=== PATIENT | female | born 1965 | race Caucasian/White ===

== ENCOUNTER 2017-05-13 21:19 | Emergency (ER) | payer MEDICAID ==
[~2017-05-13 21:19] MED LIST: ALBUAER3 INH; BACT800T5 PO; CEPH500C3 PO; CYCL-36 PO; IBUP800T23 PO; PYRI200T4 PO
[2017-05-13 21:22] VITALS: BP 136/101; PULSE 110; RESP 16; TEMP 99.5; O2SAT 98
[2017-05-13] MEDS ORDERED: SODIUM CHLOR 0.9% 1000 ML INJ 1,000 ML IV SCH (22:05)
--- NOTE | 2017-05-13 22:11 | PD ---
HPI Chief Complaint: Abdominal Pain Time Seen by Provider: 21:56 Travel History International Travel<30 days: No Contact w/Intl Traveler<30days: No Traveled to known affect area: No History of Present Illness HPI 51-year-old female here for evaluation of left upper quadrant abdominal pain. Pain started about 2 days ago while at rest. She was doing some heavy lifting prior to onset of pain. She describes the pain as a "charley horse." Pain is moderate, constant, worse with movement and palpation, radiates to her left flank/back. Patient reports history of chronic back pains and is on baclofen. She denies urinary symptoms such as hematuria. She usually has a little bit of stress incontinence, however she states she has not had this in the last few days. She has had "low-grade fever." No nausea or vomiting. No diarrhea. History of ventral hernia repair as well as tummy tuck. No other intra- abdominal surgeries. No chest pain. No hemoptysis. No dyspnea. PFSH Past Medical History Diminished Hearing: No Musculoskeletal: Yes (chronic back pain) ?: Not Menopausal: Yes Para: 6 Past Surgical History Other Surgery: Yes ("Tummy tuck") Social History Alcohol Use: No Tobacco Use: No Substance Use: No Allergies-Medications (Allergen,Severity, Reaction): Coded Allergies: Aspirin (Verified Allergy, Severe, 05/13/17) Cipro (Verified Allergy, Severe, Anaphylaxis, 05/13/17) Novocain (Verified Allergy, Severe, 05/13/17) "skin peels" Penicillin (Verified Allergy, Severe, 05/13/17) Tramadol (Verified Allergy, Severe, 05/13/17) Clindamycin (Verified Allergy, Intermediate, Dizziness and itching, ) [place] (Verified Allergy, Unknown, 05/13/17) Reported Meds & Prescriptions Reported Meds & Active Scripts Active Proair Hfa 8.5 GM Inh (Albuterol Sulfate) 90 Mcg/Act Aer 1 Puff INH Q4H PRN 108 mcg/actuation Bactrim DS (Sulfamethoxazole-Trimethoprim) 800-160 Mg Tab 1 Tab PO BID 7 Days Reported Flexeril (Cyclobenzaprine HCl) 10 Mg Tab 10 Mg PO TID Review of Systems Except as stated in HPI: all other systems reviewed are Neg Physical Exam Narrative GENERAL: Well-developed, well-nourished, comfortable, no acute distress. SKIN: Focused skin assessment warm/dry. No rash. HEAD: Atraumatic. Normocephalic. EYES: Pupils equal and round. No scleral icterus. No injection or drainage. ENT: Mucous membranes pink and moist. NECK: Trachea midline. No JVD. CARDIOVASCULAR: Regular rate and rhythm. RESPIRATORY: No accessory muscle use. Clear to auscultation. Breath sounds equal bilaterally. GASTROINTESTINAL: Abdomen soft, nondistended. Moderate left upper quadrant tenderness without peritoneal signs. There is also epigastric and right upper quadrant tenderness which is moderate and without peritoneal signs. Rest of abdomen is soft and nontender. Normal bowel sounds. MUSCULOSKELETAL: No obvious deformities. No clubbing. No cyanosis. No edema. No CVA tenderness. No midline vertebral step-off or tenderness. NEUROLOGICAL: Awake and alert. No obvious cranial nerve deficits. Motor grossly within normal limits. Normal speech. PSYCHIATRIC: Appropriate mood and affect; insight and judgment normal. Data Data Last Documented VS Vital Signs Date Time Temp Pulse Resp B/P Pulse Ox O2 Delivery O2 Flow Rate FiO2 05/13/17 21:22 99.5 110 16 136/101 98 Room Air Orders Complete Blood Count With Diff (05/13/17 22:05) Comprehensive Metabolic Panel (05/13/17 22:05) Lipase (05/13/17 22:05) Prothrombin Time / Inr (Pt) (05/13/17 22:05) Act Partial Throm Time (Ptt) (05/13/17 22:05) Urinalysis - C+S If Indicated (05/13/17 22:05) Ct Abd/Pel W Iv Contrast(Rout) (05/13/17 22:05) Iv Access Insert/Monitor (05/13/17 22:05) Ecg Monitoring (05/13/17 22:05) Oximetry (05/13/17 22:05) Morphine Inj (Morphine Inj) (05/13/17 22:15) Ondansetron Inj (Zofran Inj) (05/13/17 22:15) Sodium Chlor 0.9% 1000 Ml Inj (Ns 1000 M (05/13/17 22:05) Sodium Chloride 0.9% Flush (Ns Flush) (05/13/17 22:15) Electrocardiogram (05/13/17 22:05) Sodium Chlor 0.9% 1000 Ml Inj (Ns 1000 M (05/13/17 23:00) Ct Pulmonary Angiogram (05/13/17 22:57) Ckmb (Isoenzyme) Profile (05/13/17 23:08) Troponin I (05/13/17 23:08) CKMB (05/13/17 22:25) CKMB% (05/13/17 22:25) Iohexol 350 Inj (Omnipaque 350 Inj) (05/14/17 00:22) Ketorolac Inj (Toradol Inj) (05/14/17 01:00) Labs Laboratory Tests Test 05/13/17 22:25 White Blood Count 17.4 TH/MM3 Red Blood Count 5.44 MIL/MM3 Hemoglobin 17.0 GM/DL Hematocrit 48.6 % Mean Corpuscular Volume 89.4 FL Mean Corpuscular Hemoglobin 31.4 PG Mean Corpuscular Hemoglobin 35.1 % Concent Red Cell Distribution Width 13.0 % Platelet Count 288 TH/MM3 Mean Platelet Volume 9.6 FL Neutrophils (%) (Auto) 63.5 % Lymphocytes (%) (Auto) 21.2 % Monocytes (%) (Auto) 11.0 % Eosinophils (%) (Auto) 4.1 % Basophils (%) (Auto) 0.2 % Neutrophils # (Auto) 11.1 TH/MM3 Lymphocytes # (Auto) 3.7 TH/MM3 Monocytes # (Auto) 1.9 TH/MM3 Eosinophils # (Auto) 0.7 TH/MM3 Basophils # (Auto) 0.0 TH/MM3 CBC Comment DIFF FINAL Differential Comment Prothrombin Time 10.5 SEC Prothromb Time International 1.0 RATIO Ratio Activated Partial 28.4 SEC Thromboplast Time Urine Color LIGHT-YELLOW Urine Turbidity CLEAR Urine pH 6.0 Urine Specific [place] 1.007 Urine Protein NEG mg/dL Urine Glucose (UA) NEG mg/dL Urine Ketones NEG mg/dL Urine Occult Blood NEG Urine Nitrite NEG Urine Bilirubin NEG Urine Urobilinogen LESS THAN 2.0 MG/DL Urine Leukocyte Esterase NEG Urine RBC 1 /hpf Urine WBC 1 /hpf Urine Squamous Epithelial <1 /hpf Cells Microscopic Urinalysis Comment CULT NOT INDICATED Sodium Level 139 MEQ/L Potassium Level 4.2 MEQ/L Chloride Level 103 MEQ/L Carbon Dioxide Level 30.4 MEQ/L Anion Gap 6 MEQ/L Blood Urea Nitrogen 12 MG/DL Creatinine 0.99 MG/DL Estimat Glomerular Filtration 59 ML/MIN Rate Random Glucose 108 MG/DL Calcium Level 9.2 MG/DL Total Bilirubin 0.2 MG/DL Aspartate Amino Transf 17 U/L (AST/SGOT) Alanine Aminotransferase 29 U/L (ALT/SGPT) Alkaline Phosphatase 88 U/L Total Protein 8.4 GM/DL Albumin 4.3 GM/DL Lipase 199 U/L Total Creatine Kinase 128 U/L Creatine Kinase MB 1.2 NG/ML Troponin I LESS THAN 0.02 NG/ML MDM Medical Decision Making Medical Screen Exam Complete: Yes Emergency Medical Condition: Yes Medical Record Reviewed: Yes Interpretation(s) EKG: Sinus, rate 103, leftward axis, normal intervals, no acute ischemic abnormality. Differential Diagnosis Gastritis, peptic ulcer disease, musculoskeletal strain, rib fracture, pyelonephritis, UTI, nephrolithiasis, ureterolithiasis, shingles, pancreatitis, hepatobiliary disease Narrative Course Initial vital signs show heart rate 110, blood pressure 136/101, pulse ox 98% on room air, oral temp of 99.5F. CBC shows WBC 17.4, hemoglobin 17, hematocrit 40.6, platelets 288. CMP is unremarkable. Lipase is 199. Cardiac enzymes UA is unremarkable, not suggestive of UTI. CT abdomen pelvis: CONCLUSION: No acute inflammatory process. CT pulmonary angiogram: CONCLUSION: 1. No central pulmonary emboli. 2. No infiltrate or mass. Patient was made aware of all findings. She is sitting comfortably on the stretcher. She tells me that she has had a slight leukocytosis for a long time. There are no labs in our system to compare it to. Heart rate improved to the 90s after a liter of normal saline IV. Patient prefers to be discharged home, and at this point I believe she is stable for discharge home with outpatient follow-up with a primary care physician this week. The patient is likely suffering from musculoskeletal pain/strain. She [place] where she does a lot of heavy lifting. Patient was informed to look for rash as this may be shingles. She was informed on when to return to the emergency department. Both patient and the patient's significant other verbalize understanding and agreement with plan. Diagnosis Primary Impression: Musculoskeletal pain Additional Impression: Leukocytosis Qualified Code: D72.829 - Leukocytosis, unspecified type Referrals: Primary Care Physician 3 days Additional Instructions: Follow-up with a primary care physician this week. Return to the emergency department for worsening symptoms or any other concerns. Scripts Hydrocodone-Acetaminophen (Lortab)10-325 Mg Tab1 Tab PO Q6H PRN (PAIN) #20 TAB Ref 0 Prov:Jarrett Silver MD 05/14/17 Disposition: 01 DISCHARGE HOME Condition: Stable Jarrett Silver MD May 13, 2017 22:11
[2017-05-13] MEDS ORDERED: MORPHINE SULFATE 4 MG/ML INJ IV PUSH ONE (22:15)
[2017-05-13] MEDS ORDERED: ONDANSETRON HCL 4 MG/2 ML VIAL IVP ONE (22:15)
[2017-05-13] MEDS ORDERED: SODIUM CHLORIDE 0.9% FLUSH 10 ML FLUSH IV FLUSH PRN (22:15)
[2017-05-13 22:33] LABS: BLOOD, URINE NEG (NEG); GLUCOSE,URINE NEG (NEG); KETONE, URINE NEG (NEG); NITRITE,URINE NEG (NEG); SQUAMOUS EPITHELIAL CELL URINE <1 /hpf (0-5); URINE COLOR LIGHT-YELLOW (YELLW/STRAW)
[2017-05-13 22:34] LABS: COMMENT (UR) CULT NOT INDICATED; CULTURE IF INDICATED CULT NOT INDICATED
[2017-05-13 22:35] LABS: AUTOMATED NEUTROPHIL # 11.1 TH/MM3 (1.8-7.7); BASOPHIL % 0.2 % (0.0-2.0); EOSINOPHIL # 0.7 TH/MM3 (0-0.4); EOSINOPHIL % 4.1 % (0.0-4.0); HEMATOCRIT 48.6 % (35.0-46.0); HEMO FLAGS DIFF FINAL; LYMPH % 21.2 % (9.0-44.0); LYMPHOCYTE # 3.7 TH/MM3 (1.0-4.8); MEAN CELL VOLUME 89.4 FL (80.0-100.0); MEAN CORPUSCULAR HEMOGLOBIN 31.4 PG (27.0-34.0); MEAN CORPUSCULAR HGB CONC 35.1 % (32.0-36.0); NEUT % 63.5 % (16.0-70.0); PLATELET COUNT 288 TH/MM3 (150-450); RED BLOOD COUNT 5.44 MIL/MM3 (4.00-5.30); WHITE BLOOD COUNT 17.4 TH/MM3 (4.0-11.0)
[2017-05-13 22:56] LABS: APTT (PATIENT) 28.4 SEC (24.3-30.1); PROTHROMBIN TIME - PATIENT 10.5 SEC (9.8-11.6)
[2017-05-13 22:57] LABS: ALKALINE PHOSPHATASE 88 U/L (45-117); TOTAL BILIRUBIN ADULT 0.2 MG/DL (0.2-1.0)
[2017-05-13] MEDS ORDERED: SODIUM CHLOR 0.9% 1000 ML INJ 1,000 ML IV ONE (23:00)
[2017-05-13 23:02] LABS: ALT (GPT) 29 U/L (10-53); ANION GAP 6 MEQ/L (5-15); AST (GOT) 17 U/L (15-37); BICARBONATE 30.4 MEQ/L (21.0-32.0); BLOOD UREA NITROGEN 12 MG/DL (7-18); CHLORIDE 103 MEQ/L (98-107); GLOMERULAR FILTRATION RATE 59 ML/MIN (>89); POTASSIUM 4.2 MEQ/L (3.5-5.1); SODIUM (NA) 139 MEQ/L (136-145)
[2017-05-13 23:47] LABS: CREATINE KINASE 128 U/L (26-192)
[2017-05-13 23:59] LABS: CKMB 1.2 NG/ML (0.5-3.6)
[2017-05-14] MEDS ORDERED: IOHEXOL 350 MG/ML 10 ML VIAL (for RAD DIAG) IV ONE (00:22)
--- NOTE | 2017-05-14 00:30 | RADRPT ---
EXAM DATE/TIME: 05/13/2017 23:57 [facility] COMPARISON: No previous studies available for comparison. INDICATIONS : Left side chest pain. IV CONTRAST: 100 cc Omnipaque 350 (iohexol) IV ; Cumulative dose for multiple exams. RADIATION DOSE: 30.26 CTDIvol (mGy) ; Combined studies MEDICAL HISTORY : None SURGICAL HISTORY : Mastectomy, bilateral. Hysterectomy.Ventral hernia repair. ENCOUNTER: Initial ACUITY: 2 days PAIN SCALE: 5/10 LOCATION: Left chest TECHNIQUE: Volumetric scanning of the chest was performed using a pulmonary embolism protocol MIP images were re constructed. Using automated exposure control and adjustment of the mA and/or kV according to patien t size, radiation dose was kept as low as reasonably achievable to obtain optimal diagnostic quality images. DICOM format image data is available electronically for review and comparison. FINDINGS: PULMONARY ARTERIES: No filling defects are seen in the central pulmonary arteries. LUNGS: There is no consolidation or pneumothorax . No concerning pulmonary nodule is visualized. PLEURAE: There is no pleural thickening or pleural effusion. MEDIASTINUM: There is good visualization of the great vessels of the middle mediastinum. No evidence of mediastin al or hilar adenopathy/mass. MUSCULOSKELETAL: Within normal limits for patient age. MISCELLANEOUS: The visualized upper abdominal organs demonstrate no acute abnormality. CONCLUSION: 1. No central pulmonary emboli. 2. No infiltrate or mass. Enrique Ta MD on May 14, 2017 at 0:26 Board Certified Radiologist. This report was verified electronically.
--- NOTE | 2017-05-14 00:33 | RADRPT ---
EXAM DATE/TIME: 05/13/2017 23:57 [facility] COMPARISON: No previous studies available for comparison. INDICATIONS : Left upper quadrant pain. IV CONTRAST: 100 cc Omnipaque 350 (iohexol) IV ; Cumulative dose for multiple exams. ORAL CONTRAST: No oral contrast ingested. RADIATION DOSE: 30.26 CTDIvol (mGy) ; Combined studies MEDICAL HISTORY : None SURGICAL HISTORY : Mastectomy, bilateral. Hysterectomy.Ventral hernia repair. ENCOUNTER: Initial ACUITY: 2 days PAIN SCALE: 5/10 LOCATION: Left upper quadrant TECHNIQUE: Volumetric scanning of the abdomen and pelvis was performed. Using automated exposure control and ad justment of the mA and/or kV according to patient size, radiation dose was kept as low as reasonably achievable to obtain optimal diagnostic quality images. DICOM format image data is available electro nically for review and comparison. FINDINGS: LOWER LUNGS: The visualized lower lungs are clear. LIVER: Homogeneous density without lesion. There is no dilation of the biliary tree. No calcified gallston es. SPLEEN: Normal size without lesion. PANCREAS: Within normal limits. KIDNEYS: Normal in size and shape. There is no mass, stone or hydronephrosis. ADRENAL GLANDS: Within normal limits. VASCULAR: There is no aortic aneurysm. BOWEL/MESENTERY: The stomach, small bowel, and colon demonstrate no acute abnormality. There is no free intraperitone al air or fluid. ABDOMINAL WALL: Within normal limits. RETROPERITONEUM: There is no lymphadenopathy. BLADDER: No wall thickening or mass. REPRODUCTIVE: Within normal limits. INGUINAL: There is no lymphadenopathy or hernia. MUSCULOSKELETAL: Within normal limits for patient age. CONCLUSION: No acute inflammatory process. Enrique Ta MD on May 14, 2017 at 0:29 Board Certified Radiologist. This report was verified electronically.
[2017-05-14] MEDS ORDERED: CYCL1TAB29 PO (00:39)
[2017-05-14 00:50] VITALS: PULSE 98; O2SAT 97
[2017-05-14] MEDS ORDERED: HYDR-3533 PO (00:54)
[2017-05-14] MEDS ORDERED: HYDR-3535 PO (00:55)
[2017-05-14] MEDS ORDERED: KETOROLAC TROMETHAMINE 30 MG/ML (IVP) VIAL IV PUSH ONE (01:00)
[2017-05-14 01:21] VITALS: BP 136/81
--- NOTE | 2017-05-14 16:11 | EKG ---
Date Performed: 05/14/2017 Time Performed: 00:26:40 PTAGE: 51 years EKG: SINUS TACHYCARDIA POSSIBLE ANTERIOR MYOCARDIAL INFARCTION ABNORMAL ECG NO PREVIOUS TRACING DOCTOR: Malka Prajapati Interpretating Date/Time 05/14/2017 16:10:01
== END 2017-05-14 01:25 | disposition home or self-care (01) ==
LOC: NEPD 21:19
DX: M79.1 Myalgia (principal); D72.829 Elevated white blood cell count, unspecified; R00.0 Tachycardia, unspecified
CPT/HCPCS: 71275; 74177; 80053; 81001; 82550; 82552; 83690; 84484; 85025; 85610; 85730; 93005; 96361; 96374; 96375; 99285; J1885; J2270; J2405; J7030; Q9967

== ENCOUNTER 2017-05-29 15:31 | Emergency (ER) | payer MEDICAID ==
[~2017-05-29] VITALS: Ht 157.5 cm; Wt 78.0 kg
[~2017-05-29 15:31] MED LIST changes: -CEPH500C3 PO; -CYCL-36 PO; +CYCL1TAB29 PO; +HYDR-3535 PO; -IBUP800T23 PO; -PYRI200T4 PO
[2017-05-29 15:33] VITALS: BP 160/87; PULSE 91; RESP 15; TEMP 98.6; O2SAT 98
--- NOTE | 2017-05-29 16:05 | PD ---
HPI Chief Complaint: Injury Time Seen by Provider: 15:49 Travel History International Travel<30 days: No Contact w/Intl Traveler<30days: No Traveled to known affect area: No History of Present Illness HPI Patient is a 51 year old female who presents to ER with c/o of possible right foot infection. Patient reports that on May 25, she stepped on a piece of glass on her right foot. Reports that she was at home when this happened, reports that she pulled out a large piece of glass but noticed a "bump" to the bottom of her foot. Reports that she has been soaking her foot in [place] salt but still has a "bump" to the bottom of her foot. Patient concerned for possible infection to the bottom of her foot, Tetanus is up to date PFSH Past Medical History Diminished Hearing: No Musculoskeletal: Yes (chronic back pain) Menopausal: Yes Para: 6 Past Surgical History Other Surgery: Yes ("Tummy tuck") Social History Alcohol Use: Yes (RARELY ) Tobacco Use: Yes Substance Use: No Allergies-Medications (Allergen,Severity, Reaction): Coded Allergies: Aspirin (Verified Allergy, Severe, 05/13/17) Cipro (Verified Allergy, Severe, Anaphylaxis, 05/13/17) Novocain (Verified Allergy, Severe, 05/13/17) "skin peels" Penicillin (Verified Allergy, Severe, 05/13/17) Tramadol (Verified Allergy, Severe, 05/13/17) Clindamycin (Verified Allergy, Intermediate, Dizziness and itching, ) [place] (Verified Allergy, Unknown, 05/13/17) Reported Meds & Prescriptions Reported Meds & Active Scripts Active Doxycycline Hyclate 100 Mg Cap 100 Mg PO BID 10 Days Lortab (Hydrocodone-Acetaminophen) 10-325 Mg Tab 1 Tab PO Q6H PRN Proair Hfa 8.5 GM Inh (Albuterol Sulfate) 90 Mcg/Act Aer 1 Puff INH Q4H PRN 108 mcg/actuation Bactrim DS (Sulfamethoxazole-Trimethoprim) 800-160 Mg Tab 1 Tab PO BID 7 Days Reported Flexeril (Cyclobenzaprine HCl) 10 Mg Tab 10 Mg PO TID Review of Systems General / Constitutional: No: Fever Eyes: No: Visual changes HENT: No: Headaches Cardiovascular: No: Chest Pain or Discomfort Respiratory: No: Shortness of Breath Gastrointestinal: No: Abdominal Pain Genitourinary: No: Dysuria Musculoskeletal: No: Pain Skin: Positive Other (abscess to bottom of left foot), No Rash Neurologic: No: Weakness Psychiatric: No: Depression Endocrine: No: Polydipsia Hematologic/Lymphatic: No: Easy Bruising Physical Exam Narrative GENERAL: NAD, nontoxic SKIN: Focused skin assessment warm/dry. CARDIOVASCULAR: Regular rate and rhythm. No murmur appreciated. RESPIRATORY: No accessory muscle use. Clear to auscultation. Breath sounds equal bilaterally. GASTROINTESTINAL: Abdomen soft, non-tender, nondistended. Hepatic and splenic margins not palpable. MUSCULOSKELETAL: No obvious deformities. No clubbing. No cyanosis. No edema. Patient with abscess to bottom of right foot with no drainage or erythema or cellulitis NEUROLOGICAL: Awake and alert. No obvious cranial nerve deficits. Motor grossly within normal limits. Normal speech. PSYCHIATRIC: Appropriate mood and affect; insight and judgment normal. Data Data Last Documented VS Vital Signs Date Time Temp Pulse Resp B/P Pulse Ox O2 Delivery O2 Flow Rate FiO2 05/29/17 16:27 16 98 Room Air 05/29/17 15:33 98.6 91 160/87 Orders Foot, Complete ([id number]) (05/29/17 ) Doxycycline (Vibramycin) (05/29/17 16:15) MDM Medical Decision Making Medical Screen Exam Complete: Yes Emergency Medical Condition: Yes Interpretation(s) Vital Signs Date Time Temp Pulse Resp B/P Pulse Ox O2 Delivery O2 Flow Rate FiO2 05/29/17 15:33 98.6 91 15 160/87 98 Differential Diagnosis Differential includes abscess to foot, foreign body to foot Narrative Course 51-year-old female who presents to emergency room with complaints of abscesses foreign body to right foot after she stepped on glass on May 25. She has been soaking her foot in Epsom salts with no acute symptoms. Patient reports that she noticed that the bump on the bottom of her foot is getting alot bigger. Xray of foot ordered. Last Impressions Foot X-Ray 05/29/17 0000 Signed Impressions: Service Date/Time: Monday, May 29, 2017 16:23 - CONCLUSION: Soft tissue swelling without fracture. No radiopaque foreign body. Enrique Ta MD Plan to discharge patient to home, she will return to ER in 48 hours for re- evaluation. Signs and symptoms of infection reviewed with patient, she will return to ER earlier if she has progressing symptoms Diagnosis Primary Impression: Foot abscess, right Patient Instructions: General Instructions Additional Instructions: Return to ER as needed Follow up with your primary care doctor Return to ER or to primary care doctor in 48 hours for wound re-evaluation Please take all medications as prescribed Continue to soak your foot in [place] salt Med/Other Pt SpecificInfo: Prescription(s) given Scripts Doxycycline Hyclate 100 Mg [id number] Mg PO BID 10 Days Ref 0 Prov:Bushra Everett DO 05/29/17 Disposition: 01 DISCHARGE HOME Condition: Stable Bushra Everett DO May 29, 2017 16:05
[2017-05-29] MEDS ORDERED: DOXY100C PO (16:15)
[2017-05-29] MEDS ORDERED: DOXYCYCLINE HYCLATE 100 MG CAP PO ONE (16:15)
--- NOTE | 2017-05-29 16:39 | RADRPT ---
EXAM DATE/TIME: 05/29/2017 16:23 [facility] COMPARISON: No previous studies available for comparison. INDICATIONS : Possible Foreign Body posterior right foot, patient stepped on glass. MEDICAL HISTORY : None. SURGICAL HISTORY : Mastectomy, bilateral. Hysterectomy. ENCOUNTER: Initial ACUITY: 1 day PAIN SCORE: 6/10 LOCATION: Right posterior foot FINDINGS: Three view examination of the right foot demonstrates soft tissue swelling without dislocation, or fr acture. The tarsal bones appear intact. The interphalangeal and metatarsophalangeal joints are int act. The calcaneus is intact. Bony mineralization is normal. CONCLUSION: Soft tissue swelling without fracture. No radiopaque foreign body. Enrique Ta MD on May 29, 2017 at 16:37 Board Certified Radiologist. This report was verified electronically.
== END 2017-05-29 16:56 | disposition home or self-care (01) ==
LOC: NEPD 15:31
DX: L02.611 Cutaneous abscess of right foot (principal); Z72.0 Tobacco use; Z88.0 Allergy status to penicillin
CPT/HCPCS: 73630; 99283

== ENCOUNTER 2017-09-07 18:26 | Emergency (ER) | payer MEDICAID ==
[~2017-09-07] VITALS: Ht 157.5 cm; Wt 80.0 kg
[~2017-09-07 18:26] MED LIST changes: +DOXY100C PO
[2017-09-07 18:28] VITALS: BP 149/89; PULSE 94; RESP 22; TEMP 99; O2SAT 92
[2017-09-07] MEDS ORDERED: BACL10TA PO (19:06)
[2017-09-07] MEDS ORDERED: methylPREDNISolone SOD SUCC 125 MG/2 ML VIAL IM ONE (19:30)
[2017-09-07] MEDS ORDERED: RESP: BUDESONIDE 0.5 MG/2 ML NEB NEB ONE (19:30)
--- NOTE | 2017-09-07 19:53 | RADRPT ---
EXAM DATE/TIME: 09/07/2017 19:38 [facility] COMPARISON: CHEST SINGLE AP, March 13, 2015, 8:22. INDICATIONS : Cough and shortness of breath. MEDICAL HISTORY : Smoker. SURGICAL HISTORY : None. ENCOUNTER: Initial ACUITY: 2 weeks PAIN SCORE: 0/10 LOCATION: Bilateral chest FINDINGS: The lungs are clear without infiltrate, nodule, or mass. There is no appreciable pleural effusion fo r technique. Heart and mediastinum are unremarkable. CONCLUSION: No acute cardiopulmonary disease. John Batista MD on September 07, 2017 at 19:51 Board Certified Radiologist. This report was verified electronically.
[2017-09-07] MEDS: RESP: ALBUTEROL 2.5 MG/IPRATROPIUM 0.5 MG NEB (SCH) INH ×2 (20:13→20:14)
[2017-09-07 20:14] VITALS: O2SAT 93
[2017-09-07] MEDS ORDERED: FLUT50SP EACH NARE (20:15)
[2017-09-07] MEDS ORDERED: PRED50 PO (20:15)
[2017-09-07] MEDS ORDERED: AZIT250T3 PO (20:15)
--- NOTE | 2017-09-07 20:15 | PD ---
HPI Chief Complaint: Cold / Flu Symptoms Time Seen by Provider: 19:28 Travel History International Travel<30 days: No Contact w/Intl Traveler<30days: No Traveled to known affect area: No History of Present Illness HPI Patient is a 52-year-old female presenting to the emergency department for evaluation of cough and cold symptoms. Patient states she has had the cough for 2 weeks, she occasionally coughs up yellow sputum. She reports subjective fevers and chills. She denies any nausea or vomiting, she denies any shortness of breath, chest pain, abdominal pain, diarrhea. Patient is a smoker but denies a history of COPD. She states that she has asthma related to environmental allergens only. Patient states that her ribs hurt when she coughs and states her pain as sore and aching and a 3 out of 10. PFSH Past Medical History Diminished Hearing: No Musculoskeletal: Yes (chronic back pain) ?: Not Menopausal: Yes Para: 6 Past Surgical History Other Surgery: Yes ("Tummy tuck") Social History Alcohol Use: Yes (RARELY ) Tobacco Use: Yes Substance Use: No Allergies-Medications (Allergen,Severity, Reaction): Coded Allergies: aspirin (Unverified Allergy, Severe, 09/07/17) ciprofloxacin (Unverified Allergy, Severe, Anaphylaxis, 09/07/17) penicillin G (Unverified Allergy, Severe, 09/07/17) procaine (Unverified Allergy, Severe, 09/07/17) "skin peels" tramadol (Unverified Allergy, Severe, 09/07/17) clindamycin (Unverified Allergy, Intermediate, Dizziness and itching, ) willow (Unverified Allergy, Unknown, 09/07/17) Reported Meds & Prescriptions Reported Meds & Active Scripts Active Fluticasone Nasal [place] 50 Mcg/Act Naspr 100 Mcg EACH NARE DAILY 50 mcg/spray Prednisone 50 Mg Tab 50 Mg PO DAILY 3 Days Azithromycin 250 Mg Tab 250 Mg PO DIRECTED Take 2 tabs (500 mg) on day 1 then 1 tab daily x 4 days. Proair Hfa 8.5 GM Inh (Albuterol Sulfate) 90 Mcg/Act Aer 1 Puff INH Q4H PRN 108 mcg/actuation Bactrim DS (Sulfamethoxazole-Trimethoprim) 800-160 Mg Tab 1 Tab PO BID 7 Days Reported Baclofen Unknown Strength Tab Unknown Dose PO Q8HR Review of Systems Except as stated in HPI: all other systems reviewed are Neg General / Constitutional: Positive: Fever, Chills HENT: Positive: Rhinitis, Congestion, No: Headaches Respiratory: Positive: Cough, Pleuritic Pain, No: Shortness of Breath, Wheezing Gastrointestinal: No: Nausea, Vomiting, Abdominal Pain Musculoskeletal: No: Myalgias Physical Exam Narrative GENERAL: Well-developed, well-nourished, alert female. Resting comfortably in no acute distress. SKIN: Warm and dry. HEAD: Atraumatic. Normocephalic. EYES: Pupils equal and round. No scleral icterus. No injection or drainage. ENT: No nasal bleeding or discharge. Mucous membranes pink and moist. NECK: Trachea midline. No JVD. CARDIOVASCULAR: Regular rate and rhythm. RESPIRATORY: No accessory muscle use. Diminished on the right lower lung field. No wheezes, rhonchi, rales noted. GASTROINTESTINAL: Abdomen soft, non-tender, nondistended. Hepatic and splenic margins not palpable. MUSCULOSKELETAL: Extremities without clubbing, cyanosis, or edema. No obvious deformities. NEUROLOGICAL: Awake and alert. No obvious cranial nerve deficits. Motor grossly within normal limits. Five out of 5 muscle strength in the arms and legs. Normal speech. PSYCHIATRIC: Appropriate mood and affect; insight and judgment normal. Data Data Last Documented VS Vital Signs Date Time Temp Pulse Resp B/P (MAP) Pulse Ox O2 Delivery O2 Flow Rate FiO2 09/07/17 20:18 09/07/17 20:14 93 21 09/07/17 18:28 99.0 94 22 Room Air Orders Orders Chest, Pa & Lat (09/07/17 19:26) Methylprednisolone So Succ Inj (Solumedr (09/07/17 19:30) Albuterol-Ipratropium Neb (Duoneb Neb) (09/07/17 19:30) Budesonide Neb (Pulmicort Respule Neb) (09/07/17 19:30) Ed Discharge Order (09/07/17 20:15) MDM Medical Decision Making Medical Screen Exam Complete: Yes Emergency Medical Condition: Yes Interpretation(s) Vital Signs Date Time Temp Pulse Resp B/P (MAP) Pulse Ox O2 Delivery O2 Flow Rate FiO2 09/07/17 18:28 99.0 94 22 149/89 (109) 92 Room Air Differential Diagnosis Bronchitis versus pneumonia versus viral URI versus allergic rhinitis versus COPD exacerbation Narrative Course Patient is a 52-year-old female that presented to emergency department for evaluation of 2 weeks of a cough, congestion. Patient has a long-standing history of tobacco use with no documented diagnosis of COPD. She reports a productive cough. She appears well. Chest x-ray, Solu-Medrol, nebulizer treatments ordered. Chest x-ray which is read by the radiologist shows no acute cardiopulmonary disease. Patient was encouraged to continue symptomatic management. She was advised to follow-up with her primary doctor. She was also encouraged to return to emergency department for any new or worsening symptoms. She was reassured at this time that there was no acute findings on her chest x-ray. She was further advised to avoid tobacco use as she likely has underlying COPD and has been undiagnosed due to her long-standing tobacco use. Patient verbalized understanding of discharge instructions. Patient is stable for discharge. Diagnosis Primary Impression: Bronchitis Referrals: Primary Care Physician 1 week Patient Instructions: Acute Bronchitis (ED), General Instructions Additional Instructions: Complete full course of antibiotics as prescribed Continue symptom management Follow-up with your primary doctor Avoid tobacco use Return to emergency department for any new or worsening symptoms Med/Other Pt SpecificInfo: Prescription(s) given Scripts Fluticasone Nasal [place] (Fluticasone Nasal [place]) 50 Mcg/Act Naspr 100 MCG EACH NARE DAILY for Allergy Management, #1 BOTTLE 0 Refills 50 mcg/spray Prov: Martha Collado 09/07/17 Prednisone (Prednisone) 50 Mg Tab 50 MG PO DAILY for 3 Days, #3 TAB 0 Refills Prov: Martha Collado 09/07/17 Azithromycin (Azithromycin) 250 Mg Tab 250 MG PO DIRECTED for Infection, #6 TAB 0 Refills Take 2 tabs (500 mg) on day 1 then 1 tab daily x 4 days. Prov: Martha Collado 09/07/17 Disposition: 01 DISCHARGE HOME Condition: Stable Martha Collado Sep 07, 2017 20:15
== END 2017-09-07 20:54 | disposition home or self-care (01) ==
LOC: NEPK 18:26
DX: J40 Bronchitis, not specified as acute or chronic (principal); Z72.0 Tobacco use
CPT/HCPCS: 71020; 94640; 94664; 96372; 99284; J2930; J7626

== ENCOUNTER 2017-09-29 03:05 | Emergency (ER) | payer MEDICAID ==
[~2017-09-29] VITALS: Ht 157.5 cm; Wt 80.0 kg
[~2017-09-29 03:05] MED LIST changes: +AZIT250T3 PO; +BACL10TA PO; -CYCL1TAB29 PO; -DOXY100C PO; +FLUT50SP EACH NARE; -HYDR-3535 PO; +PRED50 PO
[2017-09-29 03:08] VITALS: BP 136/90; PULSE 82; RESP 16; TEMP 98.7; O2SAT 95
--- NOTE | 2017-09-29 03:22 | PD ---
HPI Chief Complaint: Musculoskeletal Complaint Time Seen by Provider: 03:22 Travel History International Travel<30 days: No Contact w/Intl Traveler<30days: No Traveled to known affect area: No History of Present Illness HPI The patient is a 52 year old female who presents to the [facility] emergency department with a history of having bilateral upper extremity pain and shoulder pain that seems to be spreading into the left side of her chest prior to arrival. The patient reports that it is not unusual for her to have upper extremity pain related to degenerative disc disease and herniated disks in her neck and back. She did however become concerned when it is radiating into her chest. She reports that when she was seen in the emergency department April she was told that she had an abnormality related to her heart. She reports that she is in the process of being referred to a pre school teacher, however she does not have an appointment yet. The patient reports that the left-sided chest pain as a tightening sensation. She denies having any shortness of breath. She reports having nausea, however she reports having chronic intermittent nausea related to an abdominal hernia. She reports that the nausea is worse than usual. She denies having any vomiting. She also reports over the last 2 days having a dry cough and clear rhinorrhea, chest congestion. She reports that this is related to exacerbation of seasonal allergies. On review of systems, the patient denies having any known recent fevers, new or worsening neck pain, abdominal pain,diarrhea, urinary symptoms, or neurologic symptoms. [facility] Past Medical History Narrative Medical The patient's past medical history is significant for allergy-induced asthma, tobacco abuse, dystonia, degenerative disc disease with chronic neck and back pain. Diminished Hearing: No Musculoskeletal: Yes (chronic back pain) Tetanus Vaccination: Unknown Influenza Vaccination: No ?: Not Menopausal: Yes Para: 6 Past Surgical History Narrative Surgical The patient's past surgical history is significant for prior hernia repair. Other Surgery: Yes ("Tummy tuck") Social History Alcohol Use: Yes (RARELY ) Tobacco Use: Yes (one half pack per day) Substance Use: No Allergies-Medications (Allergen,Severity, Reaction): Coded Allergies: aspirin (Unverified Allergy, Severe, 09/29/17) ciprofloxacin (Unverified Allergy, Severe, Anaphylaxis, 09/29/17) penicillin G (Unverified Allergy, Severe, 09/29/17) procaine (Unverified Allergy, Severe, 09/29/17) "skin peels" tramadol (Unverified Allergy, Severe, 09/29/17) clindamycin (Unverified Allergy, Intermediate, Dizziness and itching, 09/29) willow (Unverified Allergy, Unknown, 09/29/17) Reported Meds & Prescriptions Reported Meds & Active Scripts Active Fluticasone Nasal [place] 50 Mcg/Act Naspr 100 Mcg EACH NARE DAILY 50 mcg/spray Proair Hfa 8.5 GM Inh (Albuterol Sulfate) 90 Mcg/Act Aer 1 Puff INH Q4H PRN 108 mcg/actuation Reported Claritin (Loratadine) 5 Mg Chew 5 Mg CHEW DAILY Baclofen Unknown Strength Tab Unknown Dose PO Q8HR Review of Systems Except as stated in HPI: all other systems reviewed are Neg General / Constitutional: No: Fever Eyes: No: Visual changes HENT: Positive: Rhinorrhea, Congestion, No: Headaches Cardiovascular: Positive: Chest Pain or Discomfort Respiratory: Positive: Cough, No: Shortness of Breath Gastrointestinal: No: Abdominal Pain Genitourinary: No: Dysuria Musculoskeletal: Positive: Myalgias, Cramping, Pain Skin: No Rash Neurologic: No: Weakness, Focal Abnormalities, Change in Mentation, Slurred Speech, Sensory Disturbance Psychiatric: No: Depression Endocrine: No: Polydipsia Hematologic/Lymphatic: No: Easy Bruising Physical Exam Narrative General: The patient is well-developed well-nourished female in no acute distress. Head and Neck exam: Head is normocephalic atraumatic. Eyes: EOMI, pupils are equal round and reactive to light. Nose: Midline septum with pink mucous membranes Mouth: Dentition unremarkable. Moist mucus membranes. Posterior oropharynx is not erythematous. No tonsillar hypertrophy. Uvula midline. Airway patent. Neck: No palpable lymphadenopathy. No nuchal rigidity. No thyromegaly. Cardiovascular: Regular rate and rhythm without murmurs, gallops, or rubs. The patient has chest wall palpation along the left anterior chest, pectoral muscle. Lungs: Clear to auscultation bilaterally. No wheezes, rhonchi, or rales. Abdomen: Soft, without tenderness to palpation in all 4 quadrants of the abdomen. No guarding, rebound, or rigidity. Normal bowel sounds are audible. No tenderness on palpation of McBurney's point. Extremities: No clubbing, cyanosis, or edema. 2+ pulses in all 4 extremities. No calf tenderness on palpation. Back: No spinous process tenderness to palpation. No costovertebral angle tenderness to palpation. Neurologic Exam: Grossly nonfocal. Skin Exam: No rash noted. Intact skin that is warm and dry. Data Data Last Documented VS Vital Signs Date Time Temp Pulse Resp B/P (MAP) Pulse Ox O2 Delivery O2 Flow Rate FiO2 09/29/17 04:28 Room Air 09/29/17 03:08 98.7 82 16 95 Orders Orders Electrocardiogram (09/29/17 04:06) Complete Blood Count With Diff (09/29/17 04:06) Comprehensive Metabolic Panel (09/29/17 04:06) Creatine Kinase (Cpk) (09/29/17 04:06) Ckmb (Isoenzyme) Profile (09/29/17 04:06) Troponin I (09/29/17 04:06) B-Type Natriuretic Peptide (09/29/17 04:06) Lipase (09/29/17 04:06) Urinalysis - C+S If Indicated (09/29/17 04:06) Magnesium (Mg) (09/29/17 04:06) Chest, Single Ap (09/29/17 04:06) Iv Access Insert/Monitor (09/29/17 04:06) Ecg Monitoring (09/29/17 04:06) Oximetry (09/29/17 04:06) CKMB (09/29/17 04:22) CKMB% (09/29/17 04:22) Ketorolac Inj (Toradol Inj) (09/29/17 05:45) Labs Laboratory Tests Test 09/29/17 04:22 09/29/17 04:39 White Blood Count 10.8 TH/MM3 Red Blood Count 4.92 MIL/MM3 Hemoglobin 15.8 GM/DL Hematocrit 44.9 % Mean Corpuscular Volume 91.3 FL Mean Corpuscular Hemoglobin 32.1 PG Mean Corpuscular Hemoglobin Concent 35.2 % Red Cell Distribution Width 13.2 % Platelet Count 256 TH/MM3 Mean Platelet Volume 9.4 FL Neutrophils (%) (Auto) 67.6 % Lymphocytes (%) (Auto) 19.3 % Monocytes (%) (Auto) 8.6 % Eosinophils (%) (Auto) 3.7 % Basophils (%) (Auto) 0.8 % Neutrophils # (Auto) 7.3 TH/MM3 Lymphocytes # (Auto) 2.1 TH/MM3 Monocytes # (Auto) 0.9 TH/MM3 Eosinophils # (Auto) 0.4 TH/MM3 Basophils # (Auto) 0.1 TH/MM3 CBC Comment DIFF FINAL Differential Comment Blood Urea Nitrogen 10 MG/DL Creatinine 0.94 MG/DL Random Glucose 101 MG/DL Total Protein 7.9 GM/DL Albumin 4.0 GM/DL Calcium Level 8.7 MG/DL Magnesium Level 2.3 MG/DL Alkaline Phosphatase 86 U/L Aspartate Amino Transf (AST/SGOT) 21 U/L Alanine Aminotransferase (ALT/SGPT) 23 U/L Total Bilirubin 0.5 MG/DL Sodium Level 139 MEQ/L Potassium Level 4.8 MEQ/L Chloride Level 105 MEQ/L Carbon Dioxide Level 23.6 MEQ/L Anion Gap 10 MEQ/L Estimat Glomerular Filtration Rate 63 ML/MIN Total Creatine Kinase 161 U/L Creatine Kinase MB 1.5 NG/ML Troponin I LESS THAN 0.02 NG/ML Lipase 113 U/L Urine Color LIGHT-YELLOW Urine Turbidity CLEAR Urine pH 6.5 Urine Specific [place] 1.006 Urine Protein NEG mg/dL Urine Glucose (UA) NEG mg/dL Urine Ketones NEG mg/dL Urine Occult Blood NEG Urine Nitrite NEG Urine Bilirubin NEG Urine Urobilinogen LESS THAN 2.0 MG/DL Urine Leukocyte Esterase TRACE Urine RBC LESS THAN 1 /hpf Urine WBC 1 /hpf Urine Squamous Epithelial Cells <1 /hpf Microscopic Urinalysis Comment CULT NOT INDICATED MDM Medical Decision Making Medical Screen Exam Complete: Yes Emergency Medical Condition: Yes Medical Record Reviewed: Yes Interpretation(s) Last Impressions Chest X-Ray 09/29/17 0406 Signed Impressions: Service Date/Time: Friday, September 29, 2017 04:19 - CONCLUSION: 1. No acute cardiopulmonary disease. Venkata Rojo MD Differential Diagnosis Musculoskeletal strain, versus costochondritis versus rib fracture versus pneumothorax, versus pleurisy, versus, versus acute coronary syndrome, versus cervical radiculopathy Narrative Course During the course of the patients emergency department visit, the patients history, examination, and differential diagnosis were reviewed with the patient. The patient was placed on a web design instructor with oximetry and frequent blood pressure monitoring. The patient had [-] IV access obtained and blood work sent for analysis. The patient had an ECG done on arrival. The patient's ECG revealed sinus rhythm heart rate of 83, no acute segment elevation or depression, QRS duration is 92 ms, QTC 400ms. The patient was initially provided Toradol 15 mg IV. The patients laboratory studies were reviewed and remarkable for a white count of 10.8, hemoglobin 15.8, platelets 56 with a 8.6 monocytes. CMP is remarkable for a GFR 63, CPK 161, troponin I less than 0.02, lipase 113, urinalysis unremarkable. Radiology studies were reviewed and remarkable for a chest x-ray that shows no acute cardiopulmonary disease. While the patient was being observed the patient reported that she is developing muscle spasms, cramping in her back and legs. She reports that she has had similar symptoms in the past when she's had dystonic reactions. She reports that she does have back sent home that she takes as needed for these episodes. She reports that the last time that this happens was a few months ago. The Patient will be discharged home to take as previously prescribed. The patient is resting comfortably and feels better, is alert and in no distress. The patients results and examination findings were discussed with the patient. The repeat examination is unremarkable and benign. The history, exam, diagnostic testing, and current condition do not suggest any significant pathology to warrant further testing, continued ED treatment, admission, or surgical evaluation at this point. The vital signs have been stable. The patient does not have uncontrollable pain, intractable vomiting, or other significant symptoms. The patient's condition is stable and appropriate for discharge. The patient will pursue further outpatient evaluation with a primary care physician or other designated or consulting physician as indicated in the discharge instructions. The patient expressed understanding and was agreeable with this plan. Diagnosis Primary Impression: Muscle spasm Referrals: Primary Care Physician 3 days Patient Instructions: General Instructions, Muscle Spasm (ED) Additional Instructions: The patient is instructed to continue on her baclofen as needed for spasm. Med/Other Pt SpecificInfo: No Change to Meds Disposition: 01 DISCHARGE HOME Condition: Stable Amy Sorenson MD Sep 29, 2017 03:22
[2017-09-29] MEDS ORDERED: LORA1CHW2 CHEW (04:36)
[2017-09-29 04:44] LABS: AUTOMATED NEUTROPHIL # 7.3 TH/MM3 (1.8-7.7); BASOPHIL # 0.1 TH/MM3 (0-0.2); BASOPHIL % 0.8 % (0.0-2.0); EOSINOPHIL # 0.4 TH/MM3 (0-0.4); EOSINOPHIL % 3.7 % (0.0-4.0); HEMATOCRIT 44.9 % (35.0-46.0); HEMO FLAGS DIFF FINAL; LYMPH % 19.3 % (9.0-44.0); LYMPHOCYTE # 2.1 TH/MM3 (1.0-4.8); MEAN CELL VOLUME 91.3 FL (80.0-100.0); MEAN CORPUSCULAR HEMOGLOBIN 32.1 PG (27.0-34.0); MEAN CORPUSCULAR HGB CONC 35.2 % (32.0-36.0); MONO % 8.6 % (0.0-8.0); NEUT % 67.6 % (16.0-70.0); PLATELET COUNT 256 TH/MM3 (150-450); RED BLOOD COUNT 4.92 MIL/MM3 (4.00-5.30); RED CELL DISTRIBUTION WIDTH 13.2 % (11.6-17.2); WHITE BLOOD COUNT 10.8 TH/MM3 (4.0-11.0)
[2017-09-29 05:01] LABS: BLOOD, URINE NEG (NEG); GLUCOSE,URINE NEG (NEG); KETONE, URINE NEG (NEG); NITRITE,URINE NEG (NEG); PH, URINE 6.5 (5.0-8.5); SQUAMOUS EPITHELIAL CELL URINE <1 /hpf (0-5); URINE COLOR LIGHT-YELLOW (YELLW/STRAW)
[2017-09-29 05:02] LABS: COMMENT (UR) CULT NOT INDICATED; CULTURE IF INDICATED CULT NOT INDICATED
--- NOTE | 2017-09-29 05:16 | RADRPT ---
EXAM DATE/TIME: 09/29/2017 04:19 [place] COMPARISON: CHEST SINGLE AP, March 13, 2015, 8:22. INDICATIONS : Short of breath. MEDICAL HISTORY : None. SURGICAL HISTORY : None. ENCOUNTER: Initial ACUITY: 1 day PAIN SCORE: 0/10 LOCATION: Bilateral chest FINDINGS: A single view of the chest demonstrates the lungs to be symmetrically aerated without evidence of mas s, infiltrate or effusion. The cardiomediastinal contours are unremarkable. Osseous structures are intact. CONCLUSION: 1. No acute cardiopulmonary disease. Venkata Rojo MD on September 29, 2017 at 5:14 Board Certified Radiologist. This report was verified electronically.
[2017-09-29 05:19] LABS: ALKALINE PHOSPHATASE 86 U/L (45-117); ALT (GPT) 23 U/L (10-53); ANION GAP 10 MEQ/L (5-15); AST (GOT) 21 U/L (15-37); BICARBONATE 23.6 MEQ/L (21.0-32.0); BLOOD UREA NITROGEN 10 MG/DL (7-18); CHLORIDE 105 MEQ/L (98-107); CREATINE KINASE 161 U/L (26-192); GLOMERULAR FILTRATION RATE 63 ML/MIN (>89); MAGNESIUM 2.3 MG/DL (1.5-2.5); SODIUM (NA) 139 MEQ/L (136-145); TOTAL BILIRUBIN ADULT 0.5 MG/DL (0.2-1.0)
[2017-09-29 05:24] LABS: POTASSIUM 4.8 MEQ/L (3.5-5.1)
[2017-09-29 05:36] LABS: CKMB 1.5 NG/ML (0.5-3.6)
[2017-09-29] MEDS ORDERED: KETOROLAC TROMETHAMINE 30 MG/ML (IVP) VIAL IV PUSH ONE (05:45)
--- NOTE | 2017-09-29 09:33 | EKG ---
Date Performed: 09/29/2017 Time Performed: 04:18:40 PTAGE: 52 years EKG: Sinus rhythm NORMAL ECG PREVIOUS TRACING : 05/14/2017 00.26 DOCTOR: Dino Gonsalves Interpretating Date/Time 09/29/2017 09:31:57
== END 2017-09-29 06:12 | disposition home or self-care (01) ==
LOC: NEPE 03:05
DX: M62.838 Other muscle spasm (principal); M79.601 Pain in right arm; M79.602 Pain in left arm; R07.89 Other chest pain; R05 Cough; R06.02 Shortness of breath; R11.0 Nausea; F17.200 Nicotine dependence, unspecified, uncomplicated
CPT/HCPCS: 71010; 80053; 81001; 82550; 82552; 83690; 83735; 83880; 84484; 85025; 93005; 96374; 99285; J1885

== ENCOUNTER 2017-11-08 08:59 | Emergency (ER) | payer MEDICAID ==
[~2017-11-08] VITALS: Ht 157.5 cm; Wt 80.0 kg
[~2017-11-08 08:59] MED LIST changes: -AZIT250T3 PO; -BACT800T5 PO; +LORA1CHW2 CHEW; -PRED50 PO
[2017-11-08 09:00] VITALS: BP 140/86; PULSE 91; RESP 14; TEMP 98.3; O2SAT 96
[2017-11-08] MEDS ORDERED: BACT800T5 PO (09:54)
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
== END 2017-11-08 09:58 | disposition home or self-care (01) ==
LOC: NEPD 08:59
DX: N61.1 Abscess of the breast and nipple (principal); F17.200 Nicotine dependence, unspecified, uncomplicated
CPT/HCPCS: 99283

== ENCOUNTER 2018-05-15 13:26 | Emergency (ER) | payer MEDICAID ==
[~2018-05-15 13:26] MED LIST changes: +BACT800T5 PO
[2018-05-15 13:40] VITALS: BP 143/74; PULSE 78; RESP 16; TEMP 98.3; O2SAT 95
[2018-05-15] MEDS ORDERED: PRED50 PO (15:55)
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
== END 2018-05-15 16:14 | disposition home or self-care (01) ==
LOC: NEPD 13:26
DX: S46.911A Strain of unspecified muscle, fascia and tendon at shoulder and upper arm level, right arm, initial encounter (principal); M54.2 Cervicalgia; G89.29 Other chronic pain; F17.200 Nicotine dependence, unspecified, uncomplicated; X50.9XXA Other and unspecified overexertion or strenuous movements or postures, initial encounter; Y93.H2 Activity, gardening and landscaping
CPT/HCPCS: 99283